=== PATIENT | female | born 1995 | race African-American/Black ===

== ENCOUNTER 2021-07-16 17:08 | Emergency (ER) | payer OTHER, SELFPAY ==
[2021-07-16 17:10] VITALS: BP 129/73; PULSE 82; RESP 18; TEMP 36.9; O2SAT 100
--- NOTE | 2021-07-16 17:19 | ED.ABDPAIN ---
HPI - Abdominal Pain General Chief Complaint: Abdominal Pain Stated Complaint: abd cramps Time Seen by Provider: 07/16/21 17:17 History of Present Illness HPI narrative: 25-year-old female presents the emergency room for evaluation of suprapubic pressure and dysuria. Patient describes the pain as pressure and cramping. Patient states that she is 8 weeks , and receiving regular [employer]UDENT [employer]ER care. States symptoms of been present since yesterday. Patient denies any back pain, fevers, abdominal pain, or vaginal bleeding. Related Data Allergies Allergy/AdvReac Type Severity Reaction Status Date / Time No Known Allergies Allergy Unknown Verified 05/19/14 14:10 Review of Systems Review of Systems: CONSTITUTIONAL: Denies fever, chills, or sweats. EYES: Denies visual changes, redness, or discharge. ENT: Denies rhinorrhea, congestion, sore throat, or otalgia. CARDIOVASCULAR: Denies chest pain, palpitations, or edema. RESPIRATORY: Denies cough or dyspnea. GASTROINTESTINAL: Reports suprapubic abdominal pain GENITOURINARY: Reports dysuria SKIN: Denies rash or itching. MUSCULOSKELETAL: Denies back pain, joint pain, or myalgia. NEUROLOGIC: Denies headache, numbness, dizziness, or weakness. PSYCHIATRIC: Denies anxiety or depression. Exam Narrative: GENERAL: Well-appearing, well-nourished, and in no acute distress. HEAD: Normocephalic, atraumatic. EYES: PERRLA and EOMI. CHEST: Clear to auscultation. No respiratory distress. No wheezes rales or rhonchi HEART: Regular rate and rhythm. No murmur heard. Normal peripheral pulses. ABDOMEN: Soft, tenderness, nondistended, normal active bowel sounds. EXTREMITIES: Normal range of motion. No edema. SKIN: Warm, dry, no rash. NEURO: No focal deficits. Alert and oriented x3. PSYCH: Normal mood and affect. Course Vital Signs Vital signs: Vital Signs Temperature 36.9 C 07/16/21 17:10 Pulse Rate 82 07/16/21 17:10 Respiratory Rate 18 07/16/21 17:10 Blood Pressure 129/73 07/16/21 17:10 Pulse Oximetry 100 07/16/21 17:10 Oxygen Delivery Room Air 07/16/21 17:10 Temperature 36.9 C 07/16/21 17:10 Pulse Rate 82 07/16/21 17:10 Respiratory Rate 18 07/16/21 17:10 Blood Pressure 129/73 07/16/21 17:10 Pulse Oximetry 100 07/16/21 17:10 Oxygen Delivery Room Air 07/16/21 17:10 MDM - Abdominal Pain Lab Data Attestation: I reviewed the patient's lab results. Discharge Plan Discharge Clinical Impression: Urinary tract infection Patient Disposition: Home, Self-Care Condition: Stable Instructions: Antibiotic Form Prescriptions: New nitrofurantoin monohyd/m-cryst [Macrobid] 100 mg capsule 100 mg PO Q12H 5 Days Qty: 10 0RF Rx Instructions: must administer with a meal/food Follow-up/Referrals: UNKNOWN,DOCTOR [Primary Care Provider] - Time of Disposition: 17:54
[2021-07-16 17:31] LABS: Appearance Urine Clear (Clear); Bilirubin Urine Negative (Negative); Color Urine Yellow (Yellow); Glucose Urine UA Negative (Negative); Ketones Urine Negative (Negative); Leukocyte Esterase Ur Trace LEU/UL (Negative); Nitrate Urine Negative (Negative); Protein Urine 1+ mg/dL (Negative); Specific Grav Ur 1.025 (1.001-1.035); Urobilinogen Urine 0.2 mg/dL (<2.0)
[2021-07-16 17:34] LABS: Bacteria Urine Trace /hpf; Mucus Urine Few /lpf; Squamous Epithelial Cell Urine Few /hpf (Few); WBC Urine 16-20 /hpf
[2021-07-16 17:45] LABS: Add Urine Microscopic? YES; Blood Urine Trace-Intact (Negative)
== END 2021-07-16 18:08 | disposition home or self-care (01) ==
PROVIDERS: Emergency Provider Nurse Practitioner Family
DX: O23.41 Unspecified infection of urinary tract in pregnancy, first trimester (principal); Z3A.08 8 weeks gestation of pregnancy
CPT/HCPCS: 81001; 87086; 87088; 99284

== ENCOUNTER 2022-04-03 08:10 | Emergency (ER) | payer OTHER, SELFPAY ==
--- NOTE | ~2022-04-03 | CT_ITS ---
EXAMINATION: CT abdomen pelvis wo con DATE: 04/03/2022 10:27 INDICATION: Left flank pain. Hematuria. Urinary tract infection. TECHNIQUE: Computed tomography (CT) of the abdomen and pelvis was performed without intravenous contr ast. Automated exposure control and iterative reconstruction technique were employed. The dose-length product was 183.87 mGy-cm. COMPARISON: None. FINDINGS: The visualized portions of the lung bases are clear without pneumonia or pleural effusion. The heart size is normal. No pericardial effusion. The liver, gallbladder, spleen, pancreas, adrenal glands, and kidneys are normal. There is no urolithiasis. There are no dilated loops of bowel. The ap pendix is not visualized. There are no pathologically enlarged lymph nodes. There is no free intraper itoneal fluid. The bones are unremarkable. IMPRESSION: 1. No urolithiasis. Reviewed, dictated and finalized at location A. 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 No urolithiasis.
[2022-04-03 08:16] VITALS: BP 131/74; PULSE 116; RESP 18; TEMP 36.1; O2SAT 97
[2022-04-03] MEDS: SODIUM CHLORIDE 0.9% IV 1,000 ML 999 ML IV CONT ×2 (08:30→09:42)
[2022-04-03 08:45] LABS: Appearance Urine Cloudy (Clear); Basophils Percent Auto 0.2 % (0.2-1.2); Bilirubin Urine Negative (Negative); Blood Urine 2+ (Negative); Color Urine Yellow (Yellow); Eosinophils Percent Auto 0.1 % (0-4.4); Glucose Urine UA Negative (Negative); Hematocrit 40.9 % (37.0-47.0); Hemoglobin 13.3 g/dL (12.0-15.0); Immature Granulocyte Absolute 0.03 K/mm3 (0.00-0.031); Immature Granulocyte Percent A 0.3 % (0-0.5); Ketones Urine 1+ mg/dL (Negative); Leukocyte Esterase Ur 1+ LEU/UL (Negative); Lymphocytes Absolute Auto 0.75 K/mm3 (0.9-3.2); Lymphocytes Percent Auto 8.5 % (18.3-44.2); Mean Corpuscular HGB Conc 32.5 g/dl (32-36); Mean Corpuscular Hemoglobin 28.1 pg (26-34); Mean Corpuscular Volume 86.5 fl (80-100); Mean Platelet Volume 10.3 fl (7.4-10.4); Monocytes Absolute Auto 0.8 K/mm3 (0.1-0.6); Monocytes Percent Auto 9.5 % (2.6-8.5); Neutrophils Absolute Auto 7.2 K/mm3 (1.3-6.7); Neutrophils Percent Auto 81.4 % (45.5-73.1); Nitrate Urine Positive (Negative); Platelet Count Result 217 k/mm3 (150-375); Protein Urine 3+ mg/dL (Negative); Red Blood Count 4.73 M/mm3 (4.2-5.4); Specific Grav Ur 1.025 (1.001-1.035); White Blood Count 8.9 K/mm3 (4.5-10.0)
[2022-04-03 08:51] LABS: Bacteria Urine 2+ /hpf; Mucus Urine Heavy /lpf; RBC Urine 21-50 /hpf (0-2); Squamous Epithelial Cell Urine Many /hpf (Few); WBC Clumps Urine Present /HPF; WBC Urine >75 /hpf
[2022-04-03 08:52] LABS: Add Urine Microscopic? YES
[2022-04-03 08:55] LABS: Alanine Aminotransferase 18 U/L (6-35); Albumin Level 4.6 g/dL (3.5-5.1); Alkaline Phosphatase 75 U/L (38-126); Anion Gap 9 mmol/L (8-16); Aspartate Amino Transferase 21 U/L (14-36); Bilirubin,Total 1.5 mg/dL (0.2-1.3); Blood Urea Nitrogen 15 mg/dL (7-17); Calcium 8.8 mg/dL (8.4-10.2); Carbon Dioxide 24 mmol/L (22-30); Chloride 101 mmol/L (98-107); Estimated CRCL calculation 101 ml/min; Estimated Glomerular Filt Rate > 60; Glucose 120 mg/dL (65-110); Potassium 3.4 mmol/L (3.4-5.0); Sodium 134 mmol/L (137-145)
--- NOTE | 2022-04-03 09:28 | ED.GENADULT ---
HPI - General Adult General Chief complaint: Back Pain/Injury Stated complaint: left flank pain Time Seen by Provider: 04/03/22 08:18 History of Present Illness HPI narrative: 26-year-old female presenting to the to the department for evaluation of left flank pain has been ongoing since yesterday. Patient describes left flank pain that does not radiate. Patient denies any pain with urination. Patient denies any associated nausea vomiting or diarrhea. Patient denies any prior history of kidney stones. Patient does have a prior history of urinary tract infection but states it did not feel like this. Patient states this pain is worse than her UTI. Patient denies any prior significant past medical history. Related Data Allergies Allergy/AdvReac Type Severity Reaction Status Date / Time No Known Allergies Allergy Unknown Verified 04/03/22 09:02 Review of Systems Review of Systems: CONSTITUTIONAL: Denies fever, chills, or sweats. EYES: Denies visual changes, redness, or discharge. ENT: Denies rhinorrhea, congestion, sore throat, or otalgia. CARDIOVASCULAR: Denies chest pain, palpitations, or edema. RESPIRATORY: Denies cough or dyspnea. GASTROINTESTINAL: See HPI GENITOURINARY: See HPI SKIN: Denies rash or itching. MUSCULOSKELETAL: Denies back pain, joint pain, or myalgia. NEUROLOGIC: Denies headache, numbness, or weakness. Exam Narrative: APPEARANCE: Well appearing, no pain, no distress, well-nourished. HEAD: normocephalic, atraumatic. EYES: PERRLA/EOMI, conjunctivae clear. NOSE: Normal no drainage NECK: Supple. No adenopathy, no masses. RESPIRATORY: Airway patent, respirations nonlabored. Clear to auscultation bilaterally, no rales, rhonchi, wheezing. CARDIOVASCULAR: Regular rate and rhythm without murmurs rubs or gallops. ABDOMINAL: No abdominal tenderness to palpation. Patient does have reproducible left flank tenderness to palpation. MUSCULOSKELETAL: Moves all extremities. Strength/ROM intact, No edema, No calf tenderness. NEURO: Alert. Cranial nerves II through XII intact. Grossly intact SKIN: Warm, dry. Normal Color Course Course Emergency Course: Patient is afebrile, with tachycardia. Patient has no leukocytosis. Patient's CMP is similar to her baseline. Patient does have a UA which is concerning for urinary tract infection. Patient has positive nitrates and leuk esterase. Patient also has high amount of red blood cells. Patient has no suprapubic tenderness to palpation. CT without contrast is being ordered to evaluate for pyelonephritis and to rule out ureteral calculi. In the meantime patient is being treated with IV fluids, IV Rocephin and medications for pain control. 10:58 AM patient was treated for a urinary tract infection. Patient did receive 1 g of IV Rocephin. CTA showed no evidence of ureterolithiasis. Patient was updated on the results of her labs and imaging. Patient is tolerating p.o. and has no other complaints than the left flank pain. Heart rate was improved with rehydration. Patient was advised to take Tylenol and ibuprofen for pain control and patient will be discharged home with Keflex for a suspected urinary tract infection versus pyelonephritis. All questions concerns were addressed. Vital Signs Vital signs: Vital Signs Temperature 97 F L 04/03/22 08:16 Pulse Rate 116 H 04/03/22 08:16 Respiratory Rate 18 04/03/22 08:16 Blood Pressure 131/74 04/03/22 08:16 Pulse Oximetry 97 04/03/22 08:16 Oxygen Delivery Room Air 04/03/22 08:16 Temperature 97 F L 04/03/22 08:16 Pulse Rate 100 04/03/22 11:10 Respiratory Rate 16 04/03/22 11:10 Blood Pressure 125/83 04/03/22 11:10 Pulse Oximetry 100 04/03/22 11:10 Oxygen Delivery Room Air 04/03/22 08:16 Medical Decision Making Vital Signs Vital Signs: Vital Signs Temperature 97 F L 04/03/22 08:16 Pulse Rate 116 H 04/03/22 08:16 Respiratory Rate 18 04/03/22 08:16 Blood Pressure 131/74
[2022-04-03] MEDS: HYDROmorphone HCL INJ (*CRX) 1 MG/ML SYR 0.5 MG IV PUSH (09:42)
[2022-04-03 11:10] VITALS: BP 125/83; PULSE 100; RESP 16; O2SAT 100
== END 2022-04-03 11:10 | disposition home or self-care (01) ==
PROVIDERS: Emergency Provider Emergency Medicine
DX: N39.0 Urinary tract infection, site not specified (principal)
CPT/HCPCS: 36415; 74176; 80053; 81001; 81025; 85025; 87077; 87086; 87186; 96361; 96365; 96375; 99284; J0696; J1170; J7030

== ENCOUNTER 2023-09-10 10:25 | Emergency (ER) | payer OTHER, SELFPAY ==
--- NOTE | ~2023-09-10 | US_ITS ---
US abdomen limited Ordering provider: Jacqueline Leal MD History: . RLQ tenderness, 17wks . Comparison: None. FINDINGS: Graded compression with a linear ultrasound probe of the right lower quadrant of the abdomen was perf ormed. The appendix was not demonstrated. Dilated right fallopian tube measuring 1 cm is noted. IMPRESSION: Nonvisualized appendix. Dilated right fallopian tube measuring 1 cm is noted. Reviewed, dictated and finalized at location A.
[2023-09-10 10:42] VITALS: BP 123/70; PULSE 86; RESP 20; TEMP 36.5; O2SAT 100
[2023-09-10 10:51] VITALS: BP 123/74; PULSE 98; RESP 16; O2SAT 100
[2023-09-10 11:48] LABS: Basophils Percent Auto 0.3 % (0.2-1.2); Eosinophils Absolute Auto 0.2 K/mm3 (0-0.3); Eosinophils Percent Auto 2.2 % (0-4.4); Hematocrit 33.1 % (37.0-47.0); Immature Granulocyte Absolute 0.04 K/mm3 (0.00-0.031); Immature Granulocyte Percent A 0.6 % (0-0.5); Lymphocytes Absolute Auto 1.41 K/mm3 (0.9-3.2); Lymphocytes Percent Auto 20.4 % (18.3-44.2); Mean Corpuscular HGB Conc 33.2 g/dl (32-36); Mean Corpuscular Hemoglobin 28.8 pg (26-34); Mean Corpuscular Volume 86.6 fl (80-100); Mean Platelet Volume 10.7 fl (7.4-10.4); Monocytes Absolute Auto 0.6 K/mm3 (0.1-0.6); Monocytes Percent Auto 8.2 % (2.6-8.5); Neutrophils Absolute Auto 4.7 K/mm3 (1.3-6.7); Neutrophils Percent Auto 68.3 % (45.5-73.1); Platelet Count Result 223 k/mm3 (150-375); Red Blood Count 3.82 M/mm3 (4.2-5.4); Red Cell Distribution Width 12.4 % (11.5-14.5); White Blood Count 6.9 K/mm3 (4.5-10.0)
[2023-09-10 11:57] LABS: Alanine Aminotransferase 16 U/L (6-35); Albumin Level 3.9 g/dL (3.5-5.1); Alkaline Phosphatase 58 U/L (38-126); Anion Gap 10 mmol/L (4-12); Aspartate Amino Transferase 23 U/L (14-36); Bilirubin,Total 0.7 mg/dL (0.2-1.3); Blood Urea Nitrogen 11 mg/dL (7-17); Carbon Dioxide 20 mmol/L (22-30); Chloride 104 mmol/L (98-107); Estimated CRCL calculation 153 ml/min; Estimated Glomerular Filt Rate > 60; Glucose 79 mg/dL (65-110); Lipase 48 U/L (23-300); Potassium 3.8 mmol/L (3.4-5.0); Sodium 134 mmol/L (137-145)
[2023-09-10 12:03] LABS: Appearance Urine Cloudy (Clear); Bacteria Urine 3+ /hpf; Bilirubin Urine Negative (Negative); Blood Urine Negative (Negative); Color Urine Yellow (Yellow); Glucose Urine UA Negative (Negative); Ketones Urine Negative (Negative); Leukocyte Esterase Ur 2+ LEU/UL (Negative); Nitrate Urine Negative (Negative); Non Pathogenic Casts 0-2; Protein Urine Negative (Negative); RBC Urine 0-2 /hpf (0-2); Specific Grav Ur 1.016 (1.001-1.035); Squamous Epithelial Cell Urine Many /hpf (Few); WBC Urine 21-50 /hpf (0-3)
[2023-09-10 12:29] LABS: Add Urine Microscopic? YES
[2023-09-10] MEDS: SODIUM CHLORIDE 0.9% IV 1,000 ML 999 ML IV CONT (12:41)
--- NOTE | 2023-09-10 12:59 | ED.ABDPAIN ---
HPI - Abdominal Pain General Chief Complaint: Abdominal Pain Stated Complaint: 17 weeks gestation/abd pain Time Seen by Provider: 09/10/23 12:03 History of Present Illness HPI narrative: Patient is a 28-year-old female at approximately 17 weeks gestation presenting with abdominal pain. Patient states that she has had right lower quadrant pain for the last day. Associated with diarrhea and some decreased appetite but no vomiting. States that she was recently treated for UTI as well as a yeast infection. She denies any vaginal bleeding or discharge. No loss of fluids. No fevers, chest pain, shortness of breath. No further complaints. Related Data Allergies Allergy/AdvReac Type Severity Reaction Status Date / Time No Known Allergies Allergy Unknown Verified 09/10/23 10:44 Review of Systems Review of Systems: All systems reviewed & are unremarkable except as noted in HPI and below Exam Narrative: GENERAL: Well-appearing, nontoxic, no acute distress HEAD: Normocephalic, atraumatic. EYES: PERRLA and EOMI. ENT: Mucous membranes moist. NECK: Supple. CHEST: Clear to auscultation. No respiratory distress. HEART: Regular rate and rhythm ABDOMEN: Soft, appropriately gravid abdomen, tender in right lower quadrant and suprapubic region, no guarding or rebound EXTREMITIES: Normal range of motion SKIN: Warm, dry, no rash. NEURO: No focal deficits. Alert and oriented x3. PSYCH: Normal mood and affect. Course Vital Signs Vital signs: Vital Signs Temperature 97.7 F 09/10/23 10:42 Pulse Rate 86 09/10/23 10:42 Respiratory Rate 20 09/10/23 10:42 Blood Pressure 123/70 09/10/23 10:42 Pulse Oximetry 100 09/10/23 10:42 Oxygen Delivery Room Air 09/10/23 10:42 Temperature 97.7 F 09/10/23 10:42 Pulse Rate 97 09/10/23 14:01 Respiratory Rate 16 09/10/23 14:01 Blood Pressure 116/53 L 09/10/23 14:01 Pulse Oximetry 100 09/10/23 14:01 Oxygen Delivery Room Air 09/10/23 10:42 MDM - Abdominal Pain MDM Narrative Medical decision making narrative: 28-year-old female presenting with right lower quadrant pain in the setting of 2nd trimester . Blood work is unremarkable. UA is contaminated, possibly infected. Ultrasound of the abdomen reveals no evidence of appendicitis. Patient reports feeling improved following fluids. She is asking to go which I think is reasonable. Will start her on Keflex given her . Advised very close OB follow-up. Strict return precautions given. Discharged in stable condition. Differential Diagnosis Differential diagnosis: Likely abdominal pain, acute appendicitis, constipation and gastroenteritis Medical Records Attestation: I reviewed the patient's medical records. Lab Data Attestation: I reviewed the patient's lab results. 09/10/23 11:33 09/10/23 11:33 Labs: Lab Results 09/10/23 09/10/23 Range/Units 11:33 11:34 WBC 6.9 (4.5-10.0) K/mm3 RBC 3.82 L (4.2-5.4) M/mm3 Hgb 11.0 L (12.0-15.0) g/dL Hct 33.1 L (37.0-47.0) % MCV 86.6 (80-100) fl MCH 28.8 (26-34) pg MCHC 33.2 (32-36) g/dl RDW 12.4 (11.5-14.5) % Plt Count 223 (150-375) k/mm3 MPV 10.7 H (7.4-10.4) fl Immature Gran % (Auto) 0.6 H (0-0.5) % Neut % (Auto) 68.3 (45.5-73.1) % Lymph % (Auto) 20.4 (18.3-44.2) % Kemper % (Auto) 8.2 (2.6-8.5) % Eos % (Auto) 2.2 (0-4.4) % Baso % (Auto) 0.3 (0.2-1.2) % Lymph # (Auto) 1.41 (0.9-3.2) K/mm3 Kemper # (Auto) 0.6 (0.1-0.6) K/mm3 Eos # (Auto) 0.2 (0-0.3) K/mm3 Baso # (Auto) 0.0 (0.0-0.1) K/mm3 Abs Immat Gran (auto) 0.04 H (0.00-0.031) K/mm3 Absolute Neuts (auto) 4.7 (1.3-6.7) K/mm3 Absolute Nucleated RBC 0.000 (0.0-0.012) K/mm3 Nucleated RBC % 0.0 (0.0-0.2) % Sodium 134 L (137-145) mmol/L Potassium 3.8 (3.4-5.0) mmol/L Chloride 104 (98-107) mmol/L Carbon Dioxide 20 L (22-30) mmol/L Anion Gap 10 (4-12) mm
[2023-09-10 13:27] VITALS: BP 114/59; PULSE 96; RESP 16; O2SAT 100
[2023-09-10 14:01] VITALS: BP 116/53; PULSE 97; RESP 16; O2SAT 100
[2023-09-10 15:56] VITALS: BP 130/76; PULSE 84; RESP 14; O2SAT 99
== END 2023-09-10 15:57 | disposition home or self-care (01) ==
PROVIDERS: Student in an Organized Health Care Education/Training Program; Emergency Provider Emergency Medicine
DX: R19.7 Diarrhea, unspecified (principal); O23.42 Unspecified infection of urinary tract in pregnancy, second trimester; N39.0 Urinary tract infection, site not specified; Z3A.17 17 weeks gestation of pregnancy
CPT/HCPCS: 36415; 76705; 80053; 81001; 83690; 84702; 85025; 87077; 87086; 87088; 96360; 99283; J7030